=== PATIENT | male | born 1975 | race Caucasian/White ===

== ENCOUNTER 2017-02-12 16:17 | Inpatient (IN) ==
[2017-02-12] MEDS ORDERED: ASPIRIN PO STA (16:22)
--- NOTE | 2017-02-12 16:50 | EKG Report ---
Test Performed on : 02/12/2017 4:26:40 PM Test Reason : CHEST PAIN Blood Pressure : / mmHG Vent. Rate : 096 BPM Atrial Rate : 096 BPM P-R Int : 142 ms QRS Dur : 090 ms QT Int : 342 ms P-R-T Axes : 072 040 038 degrees QTc Int : 432 ms Normal sinus rhythm. Possible Left atrial enlargement Borderline ECG No previous ECGs available Unconfirmed Result
[2017-02-12 17:21] LABS: MANUAL DIFF NEEDED? NO
[2017-02-12 17:26] LABS: BASO% 0.3 % (0.0-0.8); EOS# 0.09 X1000 (0.0-0.7); EOS% 0.6 % (0.0-10.0); HEMATOCRIT 46.8 % (42.0-52.0); HEMOGLOBIN 16.7 g/dL (14.0-18.0); IMM GRAN# 0.05 X1000 (0.0-0.04); IMM GRAN% 0.3 % (0.0-0.5); LYMPH% 12.3 % (20.5-51.1); MCH 30.1 PG (27-31); MCHC 35.7 g/dL (33-37); MCV 84.3 FL (81-99); MONO# 1.45 X1000 (0.11-0.59); MONO% 9.9 % (1.7-9.3); MPV 10.6 FL (7.4-10.4); NEUT% 76.6 % (42.2-75.2); PLT 377 X1000 (130-400); RBC 5.55 XMIL (4.7-6.1)
--- NOTE | 2017-02-12 17:33 | Diag Imaging Result Doc PS360 ---
EXAM: CHEST-1 VIEW HISTORY: SOB TECHNIQUE: Portable AP COMPARISON: 09/17/2016 FINDINGS: The lungs are well expanded. The heart is not enlarged. The vessels are not distended. There are no infiltrates. No effusion identified. IMPRESSION: Negative exam.. Electronically signed by Tj Sanchez 02/12/2017 5:30 PM
--- NOTE | 2017-02-12 18:00 | PROVIDER DOCUMENTATION ---
This chart was entered by Ananya Avery Scribe, acting as scribe for Toribio Baldwin MD. HPI-Syncope/Dizziness - General Source: patient - History of Present Illness-Syncope/Dizzy Prior Episodes: reports: single episode today Onset/Duration: reports: 1 hour ago Timing: reports: improving Position/Activity at time of episode: reports: standing Symptoms prior to episode: reports: other (dizziness) Context: reports: lost consciousness Loss of Consciousness: unsure Location of injury. (If syncope resulted in an injury.): reports: none Current Symptoms: reports: sweaty, nausea, vomiting, dizzy, pale. denies: fever , chills, chest pain, breathing difficulty, short of breath, abdominal pain, shoulder pain, arm pain, weakness, lightheaded, headache, weak pulse, headache, blurred vision, lightheaded Recently Seen Here or By Another Healthcare Provider: No - Dizziness Severity in ED: reports: mild Dizziness Related Current/Associated Symptoms: reports: nausea/vomiting, dizzy, pale, syncope, other (numbness to all extremities and pain in R side of jaw). denies: weakness, lightheaded, headache, weak pulse, headache, blurred vision, lightheaded, hearing loss, ringing/roaring in ears, earache, sense of spinning, sense of falling, sense of confusion, off balance, cannot walk, cannot stand, unable to sit up, chronic dizziness Any recent trauma/injury?: reports: none Modifying Factors: improves with: nothing Patient usually:: reports: walks without assistance <Toribio Baldwin - Last Filed: 02/12/17 17:59> - General Source: patient <ErumThomas Lisa - Last Filed: 02/12/17 20:04> - General Chief Complaint: Dizziness Stated Complaint: "ARMS ARE NUMB", DIZZY Time Seen by Provider: 02/12/17 16:29 Allergies/Adverse Reactions: Patient Allergies Allergy/AdvReac Type Severity Reaction Status Date / Time No Known Allergies Allergy Verified 02/12/17 19:44 Home Medications: Home Medication List Medication Instructions Recorded Confirmed Last Taken Type Esomeprazole Magnesium [Nexium] 20 mg PO DAILY 08/05/14 02/12/17 02/08/17 History Lisinopril/Hydrochlorothiazide 1 each PO 02/12/17 02/12/17 12:00 History [Lisinopril-Hctz 20-12.5 mg Tab] Meloxicam 7.5 mg PO DAILY 02/12/17 02/12/17 02/09/17 History - History of Present Illness-Syncope/Dizzy Nature of Presenting Problem: Pt is 41 y/o M presents to the ED with syncopal episode, dizziness and numbness to extremities. Pt states was outside cleaning up an oak tree out of the yard and passed out. Pt denies SOB or CP. Pt states numbness to all extremities. Pt states syncopal episode was about an hour ago. Pt states dizziness intermittently for 2 mths. Pt states R side jaw pain. Pt states N and V. (Ananya Avery) Pt is 41 y/o M presents to the ED with syncopal episode, dizziness and numbness to extremities. Pt states was outside cleaning up an oak tree out of the yard and passed out. Pt denies SOB or CP. Pt states numbness to all extremities. Pt states syncopal episode was about an hour ago. Pt states dizziness intermittently for 2 mths. Pt states R side jaw pain. Pt states N and V. (Toribio Baldwin) Review of Systems - Adult - REVIEW OF SYSTEMS - ADULT Constitutional: denies: chills, fever Eyes: denies: blurred vision, double vision Ears, Nose, Mouth & Throat: denies: ear pain, nose pain, throat pain Cardiovascular: denies: chest pain, heart murmur, irregular heart rate Respiratory: denies: cough, shortness of breath, wheezing Gastrointestinal: reports: nausea, vomiting. denies: abdominal pain, diarrhea Genitourinary: denies: dysuria, hematuria Musculoskeletal: denies: bone pain, joint pain, neck pain Integumentary: denies: hives, itching, rash Neurological: reports: dizziness/vertigo (dizziness), numbness, syncope. denies : headache/migraines, slurred speech Psychiatric: reports: no symptoms reported Endocrine: reports: change in skin pigment (pallor), excessive sweating. denies : goiter, cold intolerance, heat intolerance, increased hunger, increased thirst , polyuria Hematologic/Lymphatic: reports: no symptoms reported Allergic/Immunologic: reports: no symptoms reported All Other Systems: Reviewed and Negative <Toribio Baldwin - Last Filed: 02/12/17 17:59> - REVIEW OF SYSTEMS - ADULT Constitutional: denies: chills, fever <Thomas Danielson - Last Filed: 02/12/17 20:04> Past History - Adult - PAST MEDICAL HISTORY-ADULT Review of Records: reports: Nursing Assessment Review, Medications Reviewed, Social history reviewed & non-contributory. Major Childhood Illnesses: reports: denies history Cardiovascular: reports: HTN Respiratory: reports: denies history Gastrointestinal: reports: denies history Obstetrical/Gynecological: reports: denies history Genitourinary: reports: denies history Musculoskeletal: reports: denies history Neurological: reports: denies history Endocrine/Immune: reports: denies history Other Conditions: reports: denies history - PRIOR SURGERIES/PROCEDURES Surgical/Procedure History: reports: none - IMMUNIZATION STATUS Childhood Immunizations: See Nurse Assessment Flu Vaccine: See Nurse Assessment - FAMILY HISTORY Family History: reviewed, not pertinent - SOCIAL HISTORY Smoking: cigarettes, less than 1 pack/day Provider spent 3-5 mins advising pt. on dangers of tobacco.: Discussed manners to quit use, and f/u contacts for add'l counseling. Substance Use: alcohol, marijuana Alcohol Use Frequency: occasionally Number of drinks per typical drinking period:: 3-4 drinks Living Situation: family <Toribio Baldwin - Last Filed: 02/12/17 17:59> - PAST MEDICAL HISTORY-ADULT Review of Records: reports: Nursing Assessment Review, Medications Reviewed, Social history reviewed & non-contributory. <Thomas Danielson - Last Filed: 02/12/17 20:04> Physical Exam-General - PHYSICAL EXAM-ADULT Initial Vital Signs Reviewed: Yes - CONSTITUTIONAL General Appearance: alert, mild distress - EYES Eyes: PERRL/EOMI, pink conjunctivae - HEAD, EARS, NOSE, MOUTH & THROAT HENMT: normocephalic/atraumatic, moist mucous membranes, normal ENT inspection - NECK Neck: normal inspection - RESPIRATORY Respiratory: chest non-tender, other (hyperventilating) - CARDIOVASCULAR Cardiovascular: normal peripheral pulses, regular rate, rhythm - GASTROINTESTINAL (ABDOMEN) Abdominal Exam: normal bowel sounds, non tender, soft - LYMPHATIC Lymphatic: no adenopathy - MUSCULOSKELETAL Back Exam: normal inspection Extremity: normal inspection - SKIN Integumentary: normal color, normal turgor, warm/dry - NEUROLOGIC Neurologic: grossly normal - PSYCHIATRIC Psych/Mental Status: normal mood/affect, oriented x 3 <Toribio Baldwin - Last Filed: 02/12/17 17:59> - PHYSICAL EXAM-ADULT Initial Vital Signs Reviewed: Yes - CONSTITUTIONAL General Appearance: alert, mild distress <Thomas Danielson - Last Filed: 02/12/17 20:04> Progress - PLAN OF CARE/RESULTS Result Diagrams: 02/12/17 16:30 - REASSESSMENT Reassessment #1 Time Reassessed: 16:53 (Augie RN at bedside with Pt) Status: other (Pt stated to MILKA Ghosh that he has been taking suboxone, that he bought off the street, for the past three days.) - EKG 1 Time of EKG reading by physician:: 16:26 EKG Read and Signed by:: Toribio Baldwin EKG Interpretation (*Must complete 3 of following elements*): Abnormal Rate: 96 Rhythm: normal sinus rhythm Comments: possible left atrial enlargement - XRAY 1 XRAY Study: Chest Impression: Normal XRAY Interpretation: negative exam - CHANGE OF SHIFT REPORT (ED Provider) Report Given and Care Transferred to:: Dr. Danielson Time of Transfer: 17:52 Items Pending: Labs <Toribio Baldwin - Last Filed: 02/12/17 17:59> - PLAN OF CARE/RESULTS Result Diagrams: 02/12/17 16:30 02/12/17 16:30 <Thomas Danielson - Last Filed: 02/12/17 20:04> - PLAN OF CARE/RESULTS Progress/Plan/Lab Results: Vital Signs - 8 hr 02/12/17 16:18 02/12/17 17:00 02/12/17 18:00 Temperature 97 F L Pulse Rate 105 H 85 89 Respiratory Rate 22 15 16 Blood Pressure 99/61 100/64 59/47 O2 Sat by Pulse Oximetry 94 L 100 100 02/12/17 19:03 02/12/17 19:27 02/12/17 19:59 Temperature 97.7 F Pulse Rate 78 86 Respiratory Rate 22 17 Blood Pressure 119/80 112/70 O2 Sat by Pulse Oximetry 98 99 02/12/17 20:01 Temperature 97.7 F Pulse Rate 93 H Respiratory Rate 20 Blood Pressure 110/71 O2 Sat by Pulse Oximetry 100 Laboratory Results - last 24 hr 02/12/17 02/12/17 02/12/17 16:30 16:30 16:30 WBC RBC Hgb Hct MCV MCH MCHC RDW Std Deviation Plt Count MPV Immature Gran % (Auto) Neut % (Auto) Lymph % (Auto) Powell % (Auto) Eos % (Auto) Baso % (Auto) Immature Gran # (Auto) Neut # (Auto) Lymph # (Auto) Powell # (Auto) Eos # (Auto) Baso # (Auto) PT INR APTT (Factor Assay) D-Dimer Sodium 135 L Potassium 3.4 L Chloride 92 L Carbon Dioxide 26 Anion Gap 17 BUN 27 H Creatinine 3.1 H Estimated GFR/1.73 m2 22 BUN/Creatinine Ratio 9 Glucose 99 POC Glucose Calculated Osmolality 275 Calcium 10.4 H Magnesium 2.3 Total Bilirubin 1.70 H AST 19 ALT 13 Alkaline Phosphatase 87 Creatine Kinase 134 Troponin T < 0.010 Dzz-P-Uxleuexemiw Pept 90 Total Protein 8.1 Albumin 5.1 H Globulin 3.0 Albumin/Globulin Ratio 2.0 Urine Source Urine Color Urine Clarity Urine pH Ur Specific Jackson Urine Protein Urine Ketones Urine Blood Urine Nitrite Urine Bilirubin Urine Urobilinogen Urine Microscopic RBC Urine WBC Urine Microscopic WBC Ur Epithelial Cells Urine Crystals Urine Bacteria Urine Casts Urine Yeast Urine Glucose Urine Opiates Screen Ur Oxycodone Screen Urine Methadone Screen Ur Barbituates Screen Ur Tricyclics Screen Ur Phencyclidine Scrn Ur Amphetamines Screen U Methamphetamines Scrn Urine MDMA Screen U Benzodiazepines Scrn Urine Cocaine Screen U Cannabinoids Screen 02/12/17 02/12/17 02/12/17 16:30 16:30 16:45 WBC 14.69 H RBC 5.55 Hgb 16.7 Hct 46.8 MCV 84.3 MCH 30.1 MCHC 35.7 RDW Std Deviation 13.3 Plt Count 377 MPV 10.6 H Immature Gran % (Auto) 0.3 Neut % (Auto) 76.6 H Lymph % (Auto) 12.3 L Powell % (Auto) 9.9 H Eos % (Auto) 0.6 Baso % (Auto) 0.3 Immature Gran # (Auto) 0.05 H Neut # (Auto) 11.26 H Lymph # (Auto) 1.80 Powell # (Auto) 1.45 H Eos # (Auto) 0.09 Baso # (Auto) 0.04 PT 12.5 INR 0.90 APTT (Factor Assay) 31.0 D-Dimer 0.36 Sodium Potassium Chloride Carbon Dioxide Anion Gap BUN Creatinine Estimated GFR/1.73 m2 BUN/Creatinine Ratio Glucose POC Glucose 92 Calculated Osmolality Calcium Magnesium Total Bilirubin AST ALT Alkaline Phosphatase Creatine Kinase Troponin T Bix-R-Vuubseuepxs Pept Total Protein Albumin Globulin Albumin/Globulin Ratio Urine Source Urine Color Urine Clarity Urine pH Ur Specific Jackson Urine Protein Urine Ketones Urine Blood Urine Nitrite Urine Bilirubin Urine Urobilinogen Urine Microscopic RBC Urine WBC Urine Microscopic WBC Ur Epithelial Cells Urine Crystals Urine Bacteria Urine Casts Urine Yeast Urine Glucose Urine Opiates Screen Ur Oxycodone Screen Urine Methadone Screen Ur Barbituates Screen Ur Tricyclics Screen Ur Phencyclidine Scrn Ur Amphetamines Screen U Methamphetamines Scrn Urine MDMA Screen U Benzodiazepines Scrn Urine Cocaine Screen U Cannabinoids Screen 02/12/17 02/12/17 19:25 19:25 WBC RBC Hgb Hct MCV MCH MCHC RDW Std Deviation Plt Count MPV Immature Gran % (Auto) Neut % (Auto) Lymph % (Auto) Powell % (Auto) Eos % (Auto) Baso % (Auto) Immature Gran # (Auto) Neut # (Auto) Lymph # (Auto) Powell # (Auto) Eos # (Auto) Baso # (Auto) PT INR APTT (Factor Assay) D-Dimer Sodium Potassium Chloride Carbon Dioxide Anion Gap BUN Creatinine Estimated GFR/1.73 m2 BUN/Creatinine Ratio Glucose POC Glucose Calculated Osmolality Calcium Magnesium Total Bilirubin AST ALT Alkaline Phosphatase Creatine Kinase Troponin T Cnm-[id number]-Oyicblfxipc Pept Total Protein Albumin Globulin Albumin/Globulin Ratio Urine Source CLEAN CATCH Urine Color YELLOW Urine Clarity VERY CLOUDY A Urine pH 5.0 Ur Specific Jackson 1.025 Urine Protein 3+(500 mg/dL) A Urine Ketones 1+(Small) A Urine Blood 3+ A Urine Nitrite NEGATIVE Urine Bilirubin 1+ A Urine Urobilinogen 1+(1 mg/dL) Urine Microscopic RBC <10 Urine WBC 1+ A Urine Microscopic WBC <10 Ur Epithelial Cells <10 Urine Crystals CA OXALATE PRESENT Urine Bacteria 1+ Urine Casts NONE SEEN Urine Yeast NONE SEEN Urine Glucose NEGATIVE Urine Opiates Screen NONE DETECTED Ur Oxycodone Screen NONE DETECTED Urine Methadone Screen NONE DETECTED Ur Barbituates Screen NONE DETECTED Ur Tricyclics Screen NONE DETECTED Ur Phencyclidine Scrn NONE DETECTED Ur Amphetamines Screen NONE DETECTED U Methamphetamines Scrn PRESUMPTIVE POSITIVE A Urine MDMA Screen NONE DETECTED U Benzodiazepines Scrn NONE DETECTED Urine Cocaine Screen NONE DETECTED U Cannabinoids Screen PRESUMPTIVE POSITIVE A Orders Category Date Time Status Admit - [facility] Routine AdmDCTranf 02/12/17 19:47 Ordered Cardiac Monitoring DIRECTED Care 02/12/17 16:23 Active Cardiac Monitoring DIRECTED Care 02/12/17 16:30 Active Oxygen Therapy- ED Nursing DIRECTED Care 02/12/17 16:23 Active Saline Loc NOW Care 02/12/17 16:23 Active Saline Loc NOW Care 02/12/17 16:30 Active Vital Signs Order Q 8-HR .ASSESS Care 02/12/17 19:47 Active Z-Document. for Tele Applied ORDERED Care 02/12/17 19:48 Active CHEST-1 VIEW [RAD] Stat Exams 02/12/17 16:30 Completed CBC WITH ELECTRONIC DIFF [HEME] Stat Lab 02/12/17 16:30 Completed CK PROFILE [SP CHEM] Stat Lab 02/12/17 16:30 Completed COMPREHENSIVE METABOLIC PANEL [CHEM] Stat Lab 02/12/17 16:30 Completed D-DIMER PL [COAG] Stat Lab 02/12/17 16:30 Completed MAGNESIUM [CHEM] Stat Lab 02/12/17 16:30 Completed PRO B-NATRIURETIC PEPTIDE Stat Lab 02/12/17 16:30 Completed [address]IME WITH INR PL [COAG] Stat Lab 02/12/17 16:[address] [COAG] Stat Lab 02/12/17 16:30 Completed TROPONIN T Stat Lab 02/12/17 16:[address] W/POSS RFLX CULT [URINALYSIS] Stat Lab 02/12/17 19:25 Completed URINE CULTURE [RM] Routine Lab 02/12/17 20:02 Or[address]UG SCREEN [address] Stat Lab 02/12/17 19:25 Completed 0.9% Sodium Chloride Inj [Ns] 1,000 ml Med 02/12/17 19:47 Active IV 150 mls/hr Aspirin Med 02/12/17 16:22 Discontinued 325 mg PO STAT STA Oxygen Device Routine Oth 02/12/17 19:48 Active Telemetry [OM.EQ] Routine Oth 02/12/17 19:47 Active EKG [EKG] Stat Ther 02/12/17 16:23 Draft Transfer/Admit Order [TRANSFER] Routine Transfer 02/12/17 19:49 Ordered Departure <Toribio Baldwin - Last Filed: 02/12/17 17:59> - Departure Date of Disposition Decision: 02/12/17 Time of Disposition Decision: 20:03 Certified Medical Emergency: Emergent - Critical Care Note This patient required my direct & personal management of CC.: No <Thomas Danielson - Last Filed: 02/12/17 20:04> - Departure DIAGNOSIS: Dehydration Syncope Qualifiers: Syncope type: unspecified Qualified Code(s): R55 - Syncope and collapse Disposition: ADMITTED INPATIENT 09 Condition: Stable Referrals and Follow-Ups: None,PCP [Primary Care Provider] - This chart was documented by the indicated scribe, (Ananya Avery Scribe) and accurately reflects the services I performed and decisions made by meDenny Alex T., MD, as attested by the provider's signature.
[2017-02-12 18:07] LABS: INR 0.9 (0.86-1.15); PROTIME 12.5 Seconds (12.1-15.5)
[2017-02-12 18:21] LABS: ALBUMIN 5.1 g/dL (3.5-5.0); CALCIUM 10.4 mg/dL (8.8-10.2); MAGNESIUM 2.3 mg/dL (1.5-2.7); POTASSIUM 3.4 mmol/L (3.5-5.1); TOTAL BILIRUBIN 1.7 mg/dL (0.20-1.00); TOTAL PROTEIN 8.1 g/dL (6.3-8.3)
[2017-02-12] MEDS ORDERED: NS 1,000 ML IV ONE (19:47)
[2017-02-12 19:55] LABS: UR AMPHETAMINES QUAL NONE DETECTED (NONE DETECT); UR BARBITUATES QUAL NONE DETECTED (NONE DETECT); UR BENZODIAZEPIN QUAL NONE DETECTED (NONE DETECT)
[2017-02-12 19:56] LABS: UR CANNABINOIDS QUAL PRESUMPTIVE POSITIVE (NONE DETECT); UR COCAINE QUAL NONE DETECTED (NONE DETECT); UR MDMA QUAL NONE DETECTED (NONE DETECT); UR METHADONE QUAL NONE DETECTED (NONE DETECT); UR METHAMPHETAMINE QUAL PRESUMPTIVE POSITIVE (NONE DETECT); UR OPIATES QUAL NONE DETECTED (NONE DETECT); UR OXYCODONE QUAL NONE DETECTED (NONE DETECT); UR PCP QUAL NONE DETECTED (NONE DETECT); UR TCA QUAL NONE DETECTED (NONE DETECT)
[2017-02-12 19:59] LABS: BILIRUBIN URINE 1+ (NEGATIVE); BLOOD URINE 3+ (NEGATIVE); CLARITY VERY CLOUDY (CLEAR); COLOR YELLOW; GLUCOSE URINE NEGATIVE (NEGATIVE); LEUKOCYTES URINE 1+ (NEGATIVE); NITRITE URINE NEGATIVE (NEGATIVE); SP GRAVITY URINE 1.025; UROBILINOGEN URINE 1+(1 mg/dL)
[2017-02-12 20:01] LABS: URINE CAST NONE SEEN /LPF; URINE CRYSTAL CA OXALATE PRESENT /HPF; URINE CULTURE PL NEEDED? YES; URINE EPITHELIAL CELLS <10 /HPF (<10); URINE RBC <10 /HPF (<10); URINE SOURCE CLEAN CATCH; URINE WBC <10 /HPF (<10)
[2017-02-12] MEDS ORDERED: ZOFRAN IV PRN (20:35)
[2017-02-12] MEDS ORDERED: TYLENOL PO PRN (20:35)
[2017-02-12] MEDS: NS 1,000 ML IV SCH (22:34)
[2017-02-12] MEDS ORDERED: ZANTAC PO ONE (22:35)
[2017-02-13] MEDS: NS 1,000 ML IV SCH ×3 (05:37→14:51)
[2017-02-13] MEDS: PRILOSEC PO SCH (06:01)
[2017-02-13 07:09] LABS: HEMATOCRIT 39.1 % (42.0-52.0); HEMOGLOBIN 13.6 g/dL (14.0-18.0); MCH 30.2 PG (27-31); MCHC 34.8 g/dL (33-37); MCV 86.9 FL (81-99); MPV 9.9 FL (7.4-10.4); RBC 4.5 XMIL (4.7-6.1)
[2017-02-13 07:24] LABS: CALCIUM 8.5 mg/dL (8.8-10.2); MAGNESIUM 2.3 mg/dL (1.5-2.7); POTASSIUM 3.5 mmol/L (3.5-5.1); TOTAL PROTEIN 6.3 g/dL (6.3-8.3)
--- NOTE | 2017-02-13 10:59 | HISTORY AND PHYSICAL ---
PRIMARY CARE PHYSICIAN: None. CHIEF COMPLAINT: Nausea, vomiting, dizziness and a syncopal episode while working in his yard. HISTORY OF PRESENTING ILLNESS: This is a 41-year-old male, who presents to [facility] ER with complaints of nausea, vomiting, and dizziness for 2 months. States he was working in his yard and had a syncopal episode. States that he has been in a [place] [facility] for the past couple of weeks due to having issues with drugs and alcohol and that he has been quit for the past 2 weeks since he has been in the [facility]. Workup in the ER showed a white blood cell count of 14.69. His BUN was 27 with a creatinine of 3.1. His urine drug screen was presumptive positive for methamphetamines and cannabinoids. So, he was admitted for further evaluation and treatment. PAST MEDICAL HISTORY: Hypertension. PAST SURGICAL HISTORY: None. FAMILY HISTORY: Noncontributory. SOCIAL HISTORY: He is currently at the [place] [facility] that he checked himself into but normally lives with family. He is a 4-ioyo-q-day smoker and has been so for the past 27 years. Was drinking 3-4 alcoholic drinks daily and 4-5 marijuana joints daily but again states he has been quit for 2 weeks since he has been in the [facility]. ALLERGIES: He has no known drug allergies. HOME MEDICATIONS: He was taking lisinopril/hydrochlorothiazide 20/12.5. It is being held. Meloxicam 7.5 mg p.o. daily is being held. Nexium 20 mg p.o. daily will be continued. LABORATORY DATA: Showed a white blood cell count of 14.69, hemoglobin 16.7, hematocrit 46.8, platelets 377,000. PT and INR of 12.5 and 0.90. D-dimer of 0.36. Sodium 135, potassium 3.4, chloride 92, CO2 of 26, BUN of 27, creatinine 3.1, glucose 99. Magnesium of 2.3. Creatine kinase of 134. Troponin less than 0.010. ProBNP of 90. Urinalysis was negative. Urine drug screen was presumptive positive for methamphetamines and cannabinoids. Chest x-ray showed a negative exam. EKG showed normal sinus rhythm at 96. REVIEW OF SYSTEMS: He denied any fever, chills, blurred vision. He has had dizziness. Denied any chest pain, coughing, shortness of breath. He was positive for some nausea, vomiting, and some generalized weakness. PHYSICAL EXAMINATION: VITAL SIGNS: On arrival had a temperature of 97 degrees, pulse 105, respirations 22, blood pressure was 99/61, saturating 94% on room air. His blood pressure did drop approximately 2 hours later to , but is currently 101/50. GENERAL: This is a 41-year-old, male. HEENT: Normocephalic and atraumatic. Pupils are equal, round, reactive to light. Extraocular movements are intact. Oropharynx and nares are clear. NECK: Supple. LUNGS: Clear to auscultation bilaterally with equal lung expansion and chest wall movement. HEART: With regular rate and rhythm. No murmurs, rubs, or gallops. ABDOMEN: Soft, nontender, nondistended. Bowel sounds are present times 4 quadrants. EXTREMITIES: No clubbing, cyanosis, or edema. NEUROLOGICAL: The cranial nerves 2-12 are grossly intact. ASSESSMENT: 1. Syncope. 2. Acute kidney injury. 3. Hypotension. 4. Tobacco abuse. 5. Marijuana abuse. 6. Ethanol abuse. PLAN: He was admitted to the medical unit. Placed on telemetry. O2 per protocol. Placed on normal saline at 150 mL an hour. Zofran 4 mg IV q.4 hours p.r.n. Continue his home medications and recheck a CBC and a CMP in the a.m. Dictated by AMARIS Feliz for Terell Vergara MD cc: AMARIS Feliz MD
--- NOTE | 2017-02-13 14:37 | PROGRESS NOTE ---
DATE: 02/13/2017 SUBJECTIVE: Today Mr. Beckett refers to be doing a lot better. No more dizziness. I understand Mr. Beckett said he was doing some work at a yard moving some logs and he just felt dizzy and fell, but he said it was for just a split of a second and his mentation recovered. OBJECTIVE: Vital Signs: Blood pressure is now 108/61, pulse of 75, respirations 18, temperature 98. Of note, when the patient arrived, his blood pressure was 99/61 with a pulse of 105, and there was a time where his blood pressure went as low as 59/47. General: Mr. Beckett is a 41-year- old male. He is in bed, not seemingly distressed. HEENT: Mucosa is pink and moist. Anicteric. Acyanotic. Neck: Supple. Chest: Good air entry bilateral. There is a few distant end-expiratory wheezing. Cardiovascular: Regular rate and rhythm. No murmurs, no rubs. No gallops. Abdomen: Soft, nontender. Extremities: No pedal edema. Central Nervous System: The patient is awake and alert and oriented. There is no focal neurological deficit. LABORATORY DATA: WBC is down to 6.67, hemoglobin is 13.6, platelet count of 279,000. Chemistry: Sodium is 133, potassium is 5.5, chloride is 97, bicarbonate is 26, creatinine is down to 2.2. Urine toxicology is positive for methamphetamine and cannabinoids. ASSESSMENT: 1. Syncope, likely due to orthostatic hypotension and recreational drug side effects. 2. Hemoconcentration. 3. Volume depletion. 4. Acute kidney injury secondary to volume depletion. 5. Tobacco abuse. 6. Urine toxicology positive for cannabinoids and methamphetamines. 7. History of hypertension on lisinopril and hydrochlorothiazide. The patient is currently hypotensive actually, and I am wondering if this could be multifactorial including blood pressure medication, recreational drugs, and volume depletion. PLAN: I think today we are going to continue observing Mr. Beckett. We will continue the IV fluids. Creatinine is improving, so we will continue with his IV fluids and repeat his labs for tomorrow morning. He has been advised on the recreational drug use. Urinalysis has been negative. I anticipate that hopefully by tomorrow we might be able to discharge Mr. Beckett. cc: Edvin Isaac MD
[2017-02-13] MEDS ORDERED: ZANTAC PO ONE (17:26)
[2017-02-14] MEDS: NS 1,000 ML IV SCH ×2 (00:25→07:22)
[2017-02-14 06:05] LABS: MANUAL DIFF NEEDED? NO
[2017-02-14] MEDS: PRILOSEC PO SCH (06:13)
[2017-02-14 06:15] LABS: BASO% 0.5 % (0.0-0.8); EOS# 0.18 X1000 (0.0-0.7); EOS% 2.5 % (0.0-10.0); HEMATOCRIT 38.6 % (42.0-52.0); HEMOGLOBIN 13.2 g/dL (14.0-18.0); IMM GRAN# 0.02 X1000 (0.0-0.04); IMM GRAN% 0.3 % (0.0-0.5); LYMPH% 38.2 % (20.5-51.1); MCH 30.3 PG (27-31); MCHC 34.2 g/dL (33-37); MCV 88.7 FL (81-99); MONO# 0.77 X1000 (0.11-0.59); MONO% 10.5 % (1.7-9.3); MPV 9.8 FL (7.4-10.4); PLT 246 X1000 (130-400); RBC 4.35 XMIL (4.7-6.1)
[2017-02-14 06:40] LABS: AGAP 7; BUN 21 mg/dL (8-22); CALCIUM 8.9 mg/dL (8.8-10.2); CHLORIDE 105 mmol/L (98-107); COSMO 279; POTASSIUM 4.3 mmol/L (3.5-5.1); SODIUM 138 mmol/L (136-145); TCO2 26 mmol/L (25-35)
[2017-02-14 08:06] VITALS: BP 145/104
[2017-02-14] MEDS ORDERED: NICODERM PATCH TD SCH (09:15)
--- NOTE | 2017-02-14 12:27 | Extremity Venous Study ---
Carotid Ultrasound - 02/14/2017 INDICATION: syncope TECHNIQUE: Bilateral carotid artery Doppler ultrasound COMPARISON: None FINDINGS: The carotid artery systems are normal bilaterally. There is normal color and pulse wave Doppler signal. On the right side, maximum velocity is 112 cm/s at the proximal ICA. On the left side, maximum velocity is 113 cm/s at the mid ICA. These both relate to no significant stenosis, or about 0-39%. The vertebral arteries are patent bilaterally. There is bilateral forward flow. IMPRESSION: No significant vascular compromise of the carotid artery systems. Electronically signed by Shahid Martin 02/14/2017 12:25 PM
--- NOTE | 2017-02-14 16:26 | DISCHARGE SUMMARY ---
ADMISSION DATE: 02/12/2017 DISCHARGE DATE: 02/14/2017 ADMISSION DIAGNOSES: 1. Syncope. 2. Acute kidney injury. 3. Hypotension. 4. Tobacco abuse. 5. Marijuana abuse. 6. Ethanol abuse. DISCHARGE DIAGNOSES: 1. Syncope resolved. 2. Acute kidney injury, resolved. 3. Hypotension resolved. 4. Tobacco abuse. 5. Marijuana abuse. 6. Ethanol abuse. SUMMARY OF FINDINGS: This is a 41-year-old, male, who presented to the ER with complaints of nausea, vomiting and dizziness for 2 months. States he was working in his yard and had a syncopal episode. States that he has also been living in a intermediate house for the past couple weeks due to having issues with drugs and alcohol and that he has been quit for the past 2 weeks with drugs and alcohol, since he has been in the intermediate house. When he arrived to the emergency room he had a white blood cell count of 14.69, BUN was 27, creatinine was 3.1. Urine drug screen was presumptive positive for methamphetamines and cannabinoids. He was admitted and placed on IV hydration. We did an echocardiogram that is pending, but his carotid Doppler study was obtained that showed no significant vascular compromise of the carotid artery system. His BUN has returned to normal at 1.1 after IV hydration. He is tolerating a regular diet and it is felt that he can safely be discharged home today as he has been ambulating in the hallway. Denies any dizziness or shortness of breath at this time. DISCHARGE MEDICATIONS: He will have a prescription for Norvasc 5 mg p.o. b.i.d. , #60, no refills, Nexium 20 mg p.o. daily. DISCHARGE INSTRUCTIONS: The patient will be given information on the physician referral line to obtain a primary care physician and also information on [facility]. We have DC ACEI and diuretic to due to renal impairment. Repeat BMP in 1 week and follow up with PCP DISPOSITION: He will be discharged home in stable condition. All discharge instructions have been reviewed with the patient. He verbalized understanding. TIME SPENT AT DISCHARGE: Thirty-five minutes. Dictated by AMARIS Feliz for Edvin Isaac MD cc: AMARIS Feliz MD [facility]PITALMary Anne
--- NOTE | 2017-02-14 16:54 | ECHO REPORT ---
ORDER DATE: 02/14/2017 MEASUREMENTS: Left ventricular end-diastolic diameter 4.6, end systolic diameter 3.3, septal thickness 0.9, posterior wall thickness 0.9, left atrium 3.2, aortic root 3.5. SUMMARY: 1. Fair quality study. 2. Aortic valve is trileaflet and opens normally on 2-dimensional images. Mitral, tricuspid, and pulmonic valves are without structural abnormality with trace mitral regurgitation and trace tricuspid regurgitation. The estimated systolic PA pressure by Doppler is 30 mmHg. Aortic root is normal size. 3. Normal left ventricular dimensions demonstrated. Estimated left ventricular ejection fraction appears to be at least 60%. No regional wall motion abnormalities are evident. Doppler suggests normal left ventricular diastolic function. Left atrium, right atrium, right ventricle are normal in size with normal right ventricular systolic function. 4. No pericardial effusion. 5. Appearance of inferior vena cava suggests normal central venous pressure. CONCLUSIONS: 1. Trace tricuspid regurgitation with estimated systolic PA pressure of 30 mmHg. 2. Normal left ventricular function without wall motion abnormality evident. cc: MD Meenu Wright CRNP
[2017-02-14] MEDS ORDERED: NORVASC PO SCH (21:00)
== END 2017-02-14 15:30 | disposition home or self-care (01) ==
LOC: P.ED 16:17 → P.MEDSURG 16:17 → SUATTDRO 20:15 → OBSVTOIN 20:15
PROVIDERS: ATTEND Internal Medicine